=== PATIENT | female | born 1935 | race Caucasian/White ===

== ENCOUNTER → 2018-05-07 13:07 | Outpatient (CLI) | payer MEDICARE, OTHER ==
[~2018-05-07 13:07] MED LIST: BAYER CHEWABLE81 MG PO; KEFLEX500 MG PO; METOPROLOL TART50 MG PO; OMEPRAZOLE DR 20 MG PO
[2018-05-27 07:04] VITALS: BMI 24.8
== END | disposition home or self-care (01) ==
LOC: D.RAD 13:07
DX: N39.0 Urinary tract infection, site not specified (principal); N20.0 Calculus of kidney

== ENCOUNTER 2018-05-27 05:45 | Day surgery (SDC) | payer MEDICARE, OTHER ==
[2018-05-26 11:47] LABS: BASOPHILS 0.2 % (0-2); EOSINOPHILS 4.2 % (0-7); HEMATOCRIT 44.2 % (36.0-48.0); HEMOGLOBIN 15.1 g/dL (12-16); IMMATURE GRANULOCYTES 0.1 % (0-5); LYMPHOCYTES 35.9 % (15-50); MCH 30.9 pg (26.0-34.0); MCHC 34.2 g/dL (31.0-37.0); MCV 90.4 fL (80.0-100.0); MEAN PLATELET VOLUME 9.4 fL (7.4-10.4); MONOCYTES 8.9 % (2-11); NEUTROPHILS 50.7 % (40-80); PLATELET COUNT 208 10x3/uL (130-400); RBC 4.89 10x6/uL (4.00-5.40); RDW 13.5 % (11.5-14.5); WBC 8.2 10x3/uL (4.8-10.8)
[2018-05-26 11:59] LABS: ANION GAP 11.5 mmol/L (8-16); CALCIUM 8.9 mg/dL (8.5-10.1); CARBON DIOXIDE 28.1 mmol/L (21.0-32.0); CREATININE - SERUM 0.9 mg/dL (0.6-1.3); POTASSIUM - SERUM 4.6 mmol/L (3.5-5.1)
[~2018-05-27] VITALS: Ht 165.1 cm; Wt 67.6 kg
--- NOTE | ~2018-05-27 | OP ---
PATIENT NAME: LURDES BECKER MEDICAL RECORD: [id number] :37 LOCATION:D.OPS ADMISSION DATE: SURGEON: MISBAH FREEDMAN MD DATE OF OPERATION: 05/27/2018 SURGEON: Misbah Freedman MD ANESTHESIA: TIVA by Dr. Misbah Pineda. PROCEDURES: Cystoscopy, examination under anesthesia. 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 FINDINGS: On cystoscopy, no graft erosion. Single ureteral orifices bilaterally. The bladder was diffusely inflamed. The bladder was heavily trabeculated with diverticula. This is from bladder outlet obstruction. On EUA, the patient had previous hysterectomy. There is a [place]-Walker grade II to III cystocele. The bladder could not empty completely until the cystocele was manually reduced. The pubovaginal sling is palpated and it seems very loose. No mesh erosion was seen. BLOOD LOSS: None. CLINICAL HISTORY: This is an 82-year-old female, A0, who was originally from [facility]. Her town was completely destroyed during World War II. 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 She has had hysterectomy in 1959 performed by the army doctors. She developed stress urinary incontinence in the . She also noticed a cystocele bulging of the vagina. She had an anterior repair in 1999, which failed. She continues to have stress urinary incontinence as well as urge incontinence. She is using 6 pads a day and 2 at night to catch incontinence. In 2014, she had a pubovaginal sling with Dr. Lyons. She remains incontinent. She also has issues with recurrent urinary tract infections. Therefore, I am performing an examination under anesthesia to determine if she has any vaginal mesh erosion. Also, I would like to get a better idea of what type of cystocele and other lesions she may have. It should be noted that when I examined her in the office, she did not have a rectocele. THE PATIENT IS ALLERGIC TO NITROFURANTOIN. She was given Ancef transportation agent to the OR. We had cardiac clearance from Dr. Rowan. DESCRIPTION OF PROCEDURE: She was given IV sedation and then placed into dorsal lithotomy position. She was then prepped and draped. A 21-Telugu cystoscope with 30-degree lens was used for visualization. The urethra is angulated and faces anteriorly due to the cystocele, which fills up the vaginal introitus. Putting the scope in I noticed that there was no injury to the urethra and no signs of mesh erosion into the urethra. Going into the bladder, she has diffuse bladder inflammation, which could be from previous cystitis. The bladder was heavily trabeculated. There are some cellules and diverticula, which indicate a bladder outlet obstruction. Single ureteral orifices are seen. No bladder tumors were seen. When I tried to empty the bladder urine through the cystoscope, the outflow was very small and slow. I OPERATIVE REPORT [id number] LURDES BECKER had to manually reduce the cystocele in order to completely empty the bladder. I then placed the scope into the vagina for vaginoscopy. She had previous hysterectomy. The anterior vaginal wall was completely intact and there are no signs of mesh graft erosion at all. Manual palpation revealed that the graft is a mesh and it is palpable under the urethra. It seems very slack and loose. At this point, I suspect that her recurrent UTIs are from incomplete bladder emptying due to bladder outlet obstruction from the presence of the graft as well as a quite significant cystocele. I will have to see her back in followup to discuss removal of the old pubovaginal sling and placement of a new pubovaginal sling as well as a cystocele repair in order to try to correct these issues. TRANSINT:[id number] Voice Confirmation ID: [id number] DOCUMENT ID: [id number] MISBAH FREEDMAN MD at 1051 CC: [id number] DICTATION DATE: 05/27/18 1018 TREE TRIMMER HELPER: 05/27/18 1042 [facility] [address] [id number]
[2018-05-27 07:04] VITALS: BP 119/62; Ht 165.1 cm; Wt 67.6 kg
== END 2018-05-27 11:15 | disposition home or self-care (01) ==
LOC: D.OPS 05:45
PROVIDERS: Anesthesiology
DX: N32.0 Bladder-neck obstruction (principal); Z87.440 Personal history of urinary (tract) infections; N81.11 Cystocele, midline; N39.3 Stress incontinence (female) (male); N32.89 Other specified disorders of bladder; N32.3 Diverticulum of bladder; R33.8 Other retention of urine; Z01.812 Encounter for preprocedural laboratory examination

== ENCOUNTER → 2018-06-23 18:21 | Outpatient (CLI) | payer MEDICARE, OTHER ==
[2018-05-27 07:04] VITALS: BMI 24.8
== END | disposition home or self-care (01) ==
LOC: D.LABREF 18:21
DX: R79.89 Other specified abnormal findings of blood chemistry (principal); D72.829 Elevated white blood cell count, unspecified; R31.9 Hematuria, unspecified

== ENCOUNTER → 2019-08-01 09:19 | Outpatient (CLI) | payer MEDICARE, OTHER ==
[2018-05-27 07:04] VITALS: BMI 24.8
--- NOTE | 2019-08-08 09:58 | EC ---
PATIENT:LURDES BECKER DATE OF SERVICE: 08/01/19 SEX: F MEDICAL RECORD: [id number] DATE OF : 37 LOCATION:D.[facility] AGE OF PATIENT: 83 ADMISSION DATE: 08/01/19 REFERRING PHYSICIAN: INTERPRETING PHYSICIAN: DAVID FELIPE MD ECHOCARDIOGRAM REPORT ECHO CHARGES 4 ECHO COMPLETE Date: 08/01/19 CLINICAL DIAGNOSIS: PVC'S/PAC'S/MURMUR/MVP H/O HTN ECHOCARDIOGRAPHIC MEASUREMENTS (adult normal given) AC root (d.<3.7cm) 3.0 cm LV Septum d (<1.2 cm> 1.3 cm Valve Excursion 2.3 cm LV Septum (systole) 1.9 cm Left Atria (s.<4.0cm> 3.9 cm LVPW d(<1.2cm) 1.3 cm RV (d.<2.3cm) 2.9 cm LVPW (sytole) 1.8 cm LV diastole(<5.6CM) 6.1 cm MV E-F(>70mm/sec) cm LV systole 4.2 cm LVOT Diameter 2.0 cm MV exc.(>10mm) cm Est.ejection fraction (50-75%) % DOPPLER: LVIT cm/sec A 80.0 cm/sec E 49.0 cm/sec LA cm/sec RVSP 27.2 mmHg LVOT 114 cm/sec AOP1/2T 1048.m/s Asc. Ao 143 cm/sec RVOT 61.0 cm/sec RA cm/sec PA 80.0 cm/sec AV Gradient Peak 8.2 mmHg AV Mean 4.3 mmHg AV Area 2.4 cm MV Gradient Peak 5.0 mmHg MV Mean 1.5 mmHg MV Area cm COMMENTS: OP - [facility] Coroner: [place] Scientific Writer: 3 Dr. Rowan TAPE# PACS Pericardial Effusion N DATE OF SERVICE: 08/01/2019 Adequate 2D, color flow imaging, spectral Doppler, and M-Mode. LVH is present. LV internal dimensions are normal. Wall motion is normal. EF is greater than or equal to 55%. Aortic valve is tricuspid and no evidence of stenosis on Doppler interrogation. Left atrium is normal. Mitral valve shows mild prolapse of the posterior leaflet with only trivial MR. Right-sided chambers are grossly normal. Trivial TR. ECHOCARDIOGRAM REPORT [id number] ROSITALURDESRHIANNA LECHUGA TRANSINT:[id number] Voice Confirmation ID: [id number] DOCUMENT ID: [id number] DAVID FELIPE MD at 0958 CC: [id number] DICTATION DATE: 08/02/19 1434 VP OUTCOMES: 08/02/19 1719 DEP CLI 08/01/19 [id number] [place] [address]
== END | disposition home or self-care (01) ==
LOC: D.HCCECHO 09:19
PROVIDERS: ATTEND Internal Medicine Interventional Cardiology
DX: R01.1 Cardiac murmur, unspecified (principal)

== ENCOUNTER → 2019-09-19 23:44 | Outpatient (CLI) | payer MEDICARE, OTHER ==
[2018-05-27 07:04] VITALS: BMI 24.8
== END | disposition home or self-care (01) ==
LOC: D.LABREF 23:44
PROVIDERS: ATTEND Urology
DX: N39.0 Urinary tract infection, site not specified (principal)

== ENCOUNTER → 2019-10-05 22:49 | Outpatient (CLI) | payer MEDICARE, OTHER ==
[2018-05-27 07:04] VITALS: BMI 24.8
== END | disposition home or self-care (01) ==
LOC: D.LABREF 22:49
PROVIDERS: ATTEND Urology
DX: R31.9 Hematuria, unspecified (principal)

== ENCOUNTER → 2020-01-09 22:24 | Outpatient (CLI) | payer MEDICARE, OTHER ==
[2018-05-27 07:04] VITALS: BMI 24.8
== END | disposition home or self-care (01) ==
LOC: D.LABREF 22:24
PROVIDERS: ATTEND Urology
DX: R31.9 Hematuria, unspecified (principal); R82.90 Unspecified abnormal findings in urine

== ENCOUNTER 2020-02-16 05:42 | Day surgery (SDC) | payer MEDICARE, OTHER ==
[~2020-02-16] VITALS: Ht 165.1 cm; Wt 72.1 kg
[~2020-02-16 05:42] MED LIST changes: +METAMUCIL PACKE1 PKT PO
[2020-02-16 06:15] LABS: HEMATOCRIT 47.5 % (36.0-48.0); HEMOGLOBIN 15.6 g/dL (12-16); MCH 30.1 pg (26.0-34.0); MCHC 32.8 g/dL (31.0-37.0); MCV 91.7 fL (80.0-100.0); MEAN PLATELET VOLUME 9.4 fL (7.4-10.4); PLATELET COUNT 245 10x3/uL (130-400); RBC 5.18 10x6/uL (4.00-5.40); RDW 13.1 % (11.5-14.5); WBC 6.3 10x3/uL (4.8-10.8)
[2020-02-16 06:19] LABS: CALCIUM 8.6 mg/dL (8.5-10.1); CARBON DIOXIDE 31.3 mmol/L (21.0-32.0); CREATININE - SERUM 1.1 mg/dL (0.6-1.3); POTASSIUM - SERUM 4.3 mmol/L (3.5-5.1)
[2020-02-16 07:03] VITALS: BP 137/74; Ht 165.1 cm; Wt 72.1 kg
[2020-02-16 10:11] LABS: LYMPHOCYTES 37 % (15-50); MONOCYTES 14 % (2-11); NEUTROPHILS 48 % (40-80); PLATELET ESTIMATE NORMAL; ROULEAUX OCC
--- NOTE | 2020-02-16 12:49 | NUR ---
1155-AMBULATED TO RESTROOM TO VOID WITHOUT COMPLICATIONS. REMOVED IV WITH CATH INTACT,DISPOSED INTO SHARPS,COVERED WITH GUAZE,SECURED WITH MEDIPORE TAPE.
--- NOTE | 2020-02-16 12:51 | NUR ---
1208-PT DRESSED. REVIEWED POST OP INSTRUCTIONS AND TO MAKE A 3 MONTH FOLLOW UP.VERBALIZED UNDERSTANDING. ESCORTED OUT VIA W/C BY STAFF WITH SPOUSE AWAITING TO DRIVE HOME.
--- NOTE | 2020-02-16 13:00 | OP ---
PATIENT NAME: LURDES BECKER MEDICAL RECORD: [id number] :37 LOCATION:D.OPS ADMISSION DATE: SURGEON: KATHLEEN FREEDMAN MD DATE OF OPERATION: 02/16/2020 SURGEON: Kathleen Freedman MD ANESTHESIA: General anesthesia by Marlon Stevens CRNA DIAGNOSES: Female stress urinary incontinence, [place]-Walker grade II midline cystocele. PROCEDURES: 1. Cystoscopy, pubovaginal sling with mesh -- [employer] Obtryx II. 2. Rectocele repair with Coloplast [place] dermis 8 x 12 cm graft. FINDINGS: On cystoscopy, single ureteral orifices bilaterally with no bladder tumors. No bladder injury. The previous pubovaginal sling was made of fascia as no mesh graft was discovered on exploration. ESTIMATED BLOOD LOSS: 200 mL. SPECIMENS: None. CLINICAL HISTORY: This is an 84-year-old female, who is post-hysterectomy. She had a pubovaginal sling done by Dr. Lyons many years ago. She has remained incontinent of urine. She also has recurrent urinary tract infections from a grade II midline cystocele, which is preventing complete bladder emptying. She comes now to have the cystocele repaired. I was not sure of a mesh sling had been used previously. In that case, the mesh sling would have to be removed and we would put a new sling. She is aware of the risks of the use of mesh including infection, graft erosion into the urethra, the graft extrusion into the vagina, pain and dyspareunia. She was given Ancef 1 gram IV remotely piloted vehicle controller to the OR. DESCRIPTION OF PROCEDURE: The patient was given induction of general anesthesia in supine position. She was then placed into the lithotomy position and prepped and draped. A weighted speculum was used to hold the posterior vaginal wall down. She was placed in Trendelenburg also. A 16-Yoruba Gonzalez catheter was placed into the bladder and put to bag drainage. A #1 nylon sutures were used as stay sutures to hold the labia majora laterally. These were anchored to the medial thighs. The anterior vaginal wall was infiltrated with vasopressin solution. Twenty units of vasopressin was dissolved in 100 mL of injectable normal saline. This was used for hydrodissection of the anterior vaginal wall. A T-shaped incision was made in the anterior vaginal wall. The crossbar of the T was placed about 5 mm away from the urethral meatus. This was to avoid the previous scar tissue. The vertical bar of the T ran along the anterior vaginal wall midline for a distance of about 1.5 cm. Dissection was performed using Metzenbaum scissors. We entered into the plane between the anterior vaginal wall and the bladder and urethra. Laterally, we broke down the pubocervical fascia and the attachment to the pelvic fascia. The obturator membrane was cleared off. Posteriorly, we cleared off the presacral space with the ischial spine and the attached sacrospinous ligament. Anteriorly, we entered into the space of Retzius. The Capio sutures were then placed for the cystocele repair. Four sutures of 2-0 Prolene were placed using a Capio suture jinrikisha driver. The OPERATIVE REPORT [id number] LURDES BECKER anterior repair replaced at the Santo's ligament. The posterior repair were placed through the sacrospinous ligament, 1 cm medial to the ischial spine. The purpose of removing medial to the ischial spine is to avoid hitting the internal pudendal nerves and arteries. We then landmarked for the pubovaginal sling. This was inferior to the body of the adductor longus muscle where it inserted on to the descending pubic ramus. A kathleen was made on each side of the descending pubic ramus with a marking pen. A stab incision was made using a #15 blade. The helical trocars of the [employer] Obtryx system were then placed through the stab incision and the needle-point went deep to the descending pubic ramus and the needle-point exited into the vaginal dissection space via the anterior apex of the obturator membrane. She had an intercepting finger on the anterior part of the obturator membrane. The finger was then used to guide the point out of the vaginal dissection. This finger was also to protect the bladder and urethra for any injury by the needle. The graft was then attached to the tip of the helical trocar. The trocar was then withdrawn, resulting in transobturator passage of the [employer] Obtryx mesh. The graft has midpoint indicator, which consists of a tab. This was placed under the mid urethra. Once it was placed under the mid urethra with no tension. The midpoint indicator was removed by cutting the stitch holding it in place. At this point, we performed cystoscopy to check for bladder injury. The Gonzalez catheter was removed. A 17-Yoruba cystoscope with 30-degree lens was used for visualization. No bladder injury was seen. The bladder was filled with 500 mL of normal saline to help adjust our graft tension. With the cystoscope removed, pressure suprapubically could cause leakage of fluid per the urethra. The graft tension was then gradually increased until no further leakage was evidenced after applying suprapubic pressure. The clear plastic sheath material on the graft ends was maintained until we had to place our cystocele repair graft. The cystocele repair graft is Coloplast [place] dermis 8 x 12. The depths from the vaginal dissection to the bladder neck was measured at 6 cm. An arch was cut out of the 12 cm long wall of one of the sides of the graft so that the apex of the arch was 6 cm from its opposite side. The graft was soaked in normal saline. The suspensory sutures placed by the [employer] jinrikisha driver were placed through the respective corners of the graft. The graft was then tied down in place. At this point, we removed the clear plastic sheath material from the pubovaginal sling. A hemostat was placed under the urethra to maintain graft tension. This hemostat was between the graft sling and the urethra. The clear plastic sheath material were removed entirely on both sides. The graft material was cut where it exited the skin in the groin region. The skin of the groin region was closed using simple interrupted 4-0 Vicryl. A 4-0 Monocryl in running fashion was used to close the vaginal incision. Vaginal packing consisting of Kerlix with estrogen cream was placed into the vagina. This will be removed prior to the patient going home. The patient does not have a Gonzalez catheter. We used a red rubber catheter at the end of the procedure to drain her bladder. If she is able to void, then she can go home without a Gonzalez catheter. If she cannot void, then we will have to send her home with an indwelling Gonzalez catheter for a few days. TRANSINT:[id number] Voice Confirmation ID: [id number] DOCUMENT ID: [id number] OPERATIVE REPORT [id number] LURDES BECKER ROBERT S MD at 1300 CC: [id number] DICTATION DATE: 02/16/20 1044 DIRECTOR OF TEACHING AND LEARNING: 02/16/20 1236 [facility] SDC 02/16/[address] [facility] [address] [facility] [place] [address]
--- NOTE | 2020-02-16 15:28 | NUR ---
1430-CONTINUE TO NOT BE ABLE TO VOID.
--- NOTE | 2020-02-16 15:28 | NUR ---
1230-PT UNABLE TO VOID. WATER AT BEDSIDE AND ENCOURAGED. IV PATENT
--- NOTE | 2020-02-16 15:29 | NUR ---
1515-BLADDER SCAN 227. IV BAG GOING IN BY GRAVITY. DRINKING ICE WATER.
== END 2020-02-16 16:47 | disposition home or self-care (01) ==
LOC: D.OPS 05:42
PROVIDERS: Anesthesiology; ATTEND Urology
DX: N39.3 Stress incontinence (female) (male) (principal); N81.10 Cystocele, unspecified; N39.0 Urinary tract infection, site not specified; N81.11 Cystocele, midline

== ENCOUNTER 2020-05-07 10:15 | Outpatient (CLI) | payer MEDICARE, OTHER ==
[2020-02-16 07:03] VITALS: BMI 26.5
== END 2020-05-07 11:30 | disposition home or self-care (01) ==
LOC: D.MAMMO 10:15
PROVIDERS: ATTEND Family Medicine
DX: Z12.31 Encounter for screening mammogram for malignant neoplasm of breast (principal)

== ENCOUNTER → 2020-11-22 09:31 | Outpatient (CLI) | payer MEDICARE, OTHER ==
[2020-02-16 07:03] VITALS: BMI 26.5
--- NOTE | 2020-11-26 16:00 | EC ---
PATIENT:LURDES BECKER DATE OF SERVICE: 11/22/20 SEX: F MEDICAL RECORD: [id number] DATE OF : 37 [facility] AGE OF PATIENT: 85 ADMISSION DATE: 11/22/20 REFERRING PHYSICIAN: INTERPRETING PHYSICIAN: DAVID FELIPE MD ECHOCARDIOGRAM REPORT ECHO CHARGES 4 ECHO COMPLETE Date: 11/22/20 CLINICAL DIAGNOSIS: MITRAL REGURG/MITRAL VALVE PROLAPSE ECHOCARDIOGRAPHIC MEASUREMENTS (adult normal given) AC root (d.<3.7cm) 3.4 cm LV Septum d (<1.2 cm> 1.3 cm Valve Excursion 2.1 cm LV Septum (systole) 1.5 cm Left Atria (s.<4.0cm> 3.2 cm LVPW d(<1.2cm) 1.3 cm RV (d.<2.3cm) 3.7 cm LVPW (sytole) 1.7 cm LV diastole(<5.6CM) 5.8 cm MV E-F(>70mm/sec) cm LV systole 3.8 cm LVOT Diameter 1.9 cm MV exc.(>10mm) 1.8 cm Est.ejection fraction (50-75%) % DOPPLER: LVIT cm/sec A 102.0cm/sec E 68.0 cm/sec LA cm/sec RVSP 36 mmHg LVOT 96 cm/sec AOP1/2T 701 m/s Asc. Ao 131 cm/sec RVOT 53 cm/sec RA cm/sec PA 95 cm/sec AV Gradient Peak 6.84 mmHg AV Mean 3.33 mmHg AV Area 2.2 cm MV Gradient Peak 4.88 mmHg MV Mean 1.49 mmHg MV Area cm COMMENTS: Installation & Maintenance Executive: 2 WAYNE HORTA Vp Genetic: 3 Dr. Rowan TAPE# PACS Pericardial Effusion N DATE OF SERVICE: Adequate 2D, color-flow imaging, spectral Doppler, and M-Mode FINDINGS: Mild LVH. LV internal dimensions are normal. Wall motion is normal. EF is greater than or equal to 55%. Aortic valve is tricuspid. Good valve excursion. Mild AI. Left atrium is normal at 3.2 cm. Mitral valve shows slight prolapse of the anterior leaflet, but only mild MR. Right-sided chamber is grossly normal. Trace TR. ECHOCARDIOGRAM REPORT [id number] LURDES BECKER TRANSINT:[id number] Voice Confirmation ID: [id number] DOCUMENT ID: [id number] DAVID FELIPE MD at 1600 CC: [id number] DICTATION DATE: 11/23/20818 QUILL COLLECTOR: 11/23/20 0910 DEP CLI 11/22/20 [id number] [place] [address]
== END | disposition home or self-care (01) ==
LOC: D.HCCECHO 09:30
PROVIDERS: ATTEND Internal Medicine Interventional Cardiology
DX: I34.0 Nonrheumatic mitral (valve) insufficiency (principal)

== ENCOUNTER → 2020-12-17 10:10 | Outpatient (CLI) | payer MEDICARE, OTHER ==
[2020-02-16 07:03] VITALS: BMI 26.5
== END | disposition home or self-care (01) ==
LOC: D.HCCARDIO 10:10
PROVIDERS: ATTEND Internal Medicine Cardiovascular Disease
DX: I20.9 Angina pectoris, unspecified (principal)

== ENCOUNTER 2020-12-20 11:52 | Day surgery (SDC) | payer MEDICARE, OTHER ==
[~2020-12-20] VITALS: Ht 165.1 cm; Wt 71.2 kg
--- NOTE | ~2020-12-20 | HEMODYNAMI ---
PATIENT:LURDES BECKER MEDICAL RECORD: [id number] : 39 LOCATION:[facility] ADMISSION DATE: 12/20/20 Generatedon:114:56 Patient name: LURDES BECKER Patient #: [id number] SSN: [id number] : 1935 Date of study: 12/20/2020 Page: Of Hemodynamic Procedure Report Patient Data Patient Demographics Procedure consent was obtained First Name: LURDES Gender: Female Last Name: ROSITA : 1935 Middle Initial: ALEXANDREA Age: 85 year(s) Patient #: [id number] Race: SSN: [id number] Additional ID: [id number] Contact details Address: [address] [place] [address] State: [place] City: [place] Zip code: [address] Past Medical History Performed procedures and imaging results Date Procedure Procedure Results Comments Stress testing Positive->Intermediate with SPECT MPI risk Allergies Allergen Reaction Date Comments Reported Other allergy 12/20/2020 SULFA Admission Admission Data Admission Date: 12/20/2020 Admission Time: 11:52 Arrival Date: 12/20/2020 Arrival Time: 13:30 Admit Source: Other Insurance Payor: Medicare [facility] #: [id number] Height (in.): 64.96 BSA: 1.78 (m2) Height (cm.): 165 BMI: 26.08 (kg/m2) Weight (lbs.): 156.53 Weight (kg.): 71 Lab Results Lab Result Date: 12/20/2020 Lab Result Time: 0:00 Biochemistry Name Units Result Min Max BUN mg/dl 18 --(---*)-- 7 18 Creatinine mg/dl 0.8 --(-*--)-- 0.6 1.3 eGFR ml/min 72 *-(----)-- 90 120 NONAFRICAN CBC Name Units Result Min Max Hemoglobin g/dl 14.9 --(-*--)-- 13.5 17.5 Procedure Procedure Types Cath Procedure Diagnostic Procedure [facility] w/Coronaries FFR/IVUS FFR Initial FFR Additional Sedation Charges Moderate Sedation 10-24 minutes PCI Procedure Coronary Stent Coronary Stent Initial Coronary Stent Additional Hemochron ACT Test Procedure Description Procedure Date Procedure Date: 12/20/2020 Procedure Start Time: 14:26 Procedure End Time: 14:53 Procedure Staff Name Function Eduardo Zhang MD Performing Physician Mary Beyer RT Monitor Channing Tolentino RN Nurse Daya Rudd RT Scrub Procedure Data Cath Procedure Fluoroscopy Diagnostic fluoroscopy Total fluoroscopy Time: 4.8 time: 4.8 min min Diagnostic fluoroscopy Total fluoroscopy dose: 485 dose: 485 mGy mGy Contrast Material Contrast Material Type Amount (ml) Isovue 300 108 Entry Location Entry Primary Successful Side Size Upsize Upsize Entry Closure Succes sful Closure Location (Fr) 1 (Fr) 2 (Fr) Remarks Device Remarks Femoral Right 5 Fr 6 Fr Exoseal artery Short Estimated blood loss: 10 ml Diagnostic catheters Device Type Used For End Catheter Placement MULTIPACK JL 4.0 5Fr Procedure catheter MULTIPACK 3DRC 5Fr Procedure catheter MULTIPACK Pigtail 5 Fr Ventriculography catheter Procedure Complications No complications Procedure Medications Medication Administration Route Dosage 0.9% NaCl I.V. 100 ml/hr Oxygen etCO2 Nasal cannula 2 l/min Heparin Flush Bag added to field 2 bags (1000units/500ml NS) Lidocaine 2% added to field 20 Zofran I.V. 4 mg Versed I.V. 1 mg Fentanyl I.V. 50 mcg Heparin Bolus I.V. 5000 units Integrilin (Bolus I.V. 6.2 ml 2mg/ml) Integrilin (Bolus wasted 3.8 ml 2mg/ml) Plavix P.O. 600 mg Hemodynamics Rest BSA: 1.78 (m2) HGB: 14.9 (g/dl) O2 Consumption: Estimated: 159.35 (ml/min) O2 Co nsumption indexed: Estimated:89.52 (ml/min/m) Heart Rate: 71 (bpm) Pressure Samples Time Site Value (mmHg) Purpose Heart Use Rate(bpm) 14:32 LV 137/10,11 Snapshot 80 Gradients Valve Time Site Site Mean SEP/DFP Peak To Heart Use 1 2 (mmHg) (sec/min) Peak Rate (mmHg) (bpm) Aortic 14:32 LV AO 81 Snapshots Pre Cath Intra NCS Post Cath Vital Signs Time Heart Resp SPO2 etCO2 NIBP (mmHg) Rhythm Pain Sedation Rate (ipm) (%) (mmHg) Status Level (bpm) 14:18:22 67 12 98 0 133/74(101) NSR 0 (11) 10(A) , No pain 14:22:36 63 13 100 30 121/64(83) NSR 0 (11) 10(A) , No pain 14:26:50 68 18 100 28.5 125/68(96) NSR 0 (11) 10(A) , No pain 14:31:06 79 21 98 33.7 126/60(95) NSR 0 (11) 10(A) , No pain 14:35:22 80 23 98 31.5 124/66(82) NSR 0 (11) 10(A) , No pain 14:39:40 82 27 99 32.2 120/57(88) NSR 0 (11) 10(A) , No pain 14:43:56 81 52 100 35.9 123/60(88) NSR 0 (11) 10(A) , No pain 14:48:10 87 19 100 31.5 123/72(88) NSR 0 (11) 10(A) , No pain 14:52:26 74 11 100 30 121/66(83) NSR 0 (11) 10(A) , No pain Medications Time Medication Route Dose Verified Delivered Reason Notes E ffectiveness by by 14:26:32 0.9% NaCl I.V. 100 Channing Channing Per ml/hr Rajan Tolentino physician RN RN 14:26:40 Oxygen etCO2 2 Channing Channing for low 02 Nasal l/min Rajan Tolentino sats cannula RN RN 14:26:50 Heparin Flush added 2 Channing Channing used for Bag to bags Rajan Tolentino procedure (1000units/500ml field RUIZ RN NS) 14:26:59 Lidocaine 2% added 20ml Channing Channing for local to vial Rajan Tolentino anesthetic field RUIZ RN 14:27:12 Zofran I.V. 4 mg Channing Channing for nausea Rajan Tolentino RN RN 14:27:20 Versed I.V. 1 mg Channing Channing for sedation Rajan Tolentino RN, RN 14:27:28 Fentanyl I.V. 50 Channing Channing for anxiety mcg Rajan Tolentino RN, RN 14:37:22 Heparin Bolus I.V. 5000 Channing Channing for sedation units Rajan Tolentino RN, RN 14:40:08 Integrilin I.V. 6.2 Channing Channing for (Bolus 2mg/ml) ml Rajan Tolentino antiplatelet RN RN therapy 14:40:17 Integrilin wasted 3.8 Channing Channing to sharp's (Bolus 2mg/ml) ml Rajan Tolentino RN, RN 14:51:39 Plavix P.O. 600 Channing Channing for mg Rajan Tolentino antiplatelet RN RN therapy Procedure Log Time Note 13:51:30 Informed consent obtained and on chart 13:52:21 Arrival Date: 12/20/2020 1:30:00 PM 13:52:44 Admit Source: Other 13:52:47 Insurance Payor : Medicare 13:54:57 Patient Height : 64.96 inches 13:55:01 Patient Weight : 156.53 lbs 13:55:40 Lab Result : eGFR NONAFRICAN 72 ml/min 13:55:40 Lab Result : Hemoglobin 14.9 g/dl 13:55:40 Lab Result : BUN 18 mg/dl 13:55:40 Lab Result : Creatinine 0.8 mg/dl 13:55:45 Diagnostic Cath Status : Elective 13:56:07 Procedure Status Elective Heart Cath (OP). 13:56:09 Patricia Machado RT(R) sent for patient. Start room use. 13:56:10 Time tracking: Regular hours (M-F 7:00 - 5:00) 13:56:14 Plan of Care:Hemodynamics will remain stable., Cardiac rhythm will remain stable., Comfort level will be maintained., Respiratory function will remain adequate., Patient/ family verbilizes understanding of procedure., Procedure tolerated without complication., Recovers from procedure without complications.. 14:02:44 H&P Date Dictated: 12/06/2020 Within 30 days and on chart., H&P Addendum completed by physician on day of procedure. (MUST COMPLETE FOR ALL OUTPATIENTS). 14:03:01 Patient allergic to Other allergySULFA 14:06:05 Stress Test: yes; abnormal INFERIOR 14:11:59 Patient received from Pre/Post Procedure Room to CCL 1 Alert and oriented. Tansferred to table in Supine position. 14:12:00 Warm blankets applied, and jaime hugger turned on for patient comfort. 14:12:00 Correct patient and procedure confirmed by team. 14:12:01 ECG and BP/O2 sat monitors applied to patient. 14:14:40 H&P Date Dictated: 12/17/2020 Within 30 days and on chart., H&P Addendum completed by physician on day of procedure. (MUST COMPLETE FOR ALL OUTPATIENTS). 14:14:43 Pre-procedure instructions explained to patient. 14:14:52 Family in waiting room. 14:14:54 Patient NPO since Midnight. 14:15:05 Is the patient allergic to Iodine/contrast media? No. 14:15:08 Was the patient premedicated? No 14:15:12 Is patient on blood thinner?No 14:15:15 Patient diabetic? No. 14:15:27 Snore? No 14:15:28 Sleep apnea? No 14:15:35 Patient pain scale 0/10 ?. 14:15:48 IV patent on arrival in left forearm with 0.9% NaCl at KVO. 14:15:56 Lab results completed and on chart. 14:16:36 Stress Test: yes; abnormal MULTIVESSEL 14:16:44 Right groin area was prepped with chlora-prep and draped in sterile fashion 14:16:50 Alarms reviewed by R. N. 14:16:51 Sharps counted by scrub and verified by R.N. 14:16:55 Physician arrived 14:17:15 Vital chart was started 14:17:20 Baseline sample Acquired. 14:17:29 Full Disclosure recording started 14:19:03 2) 60-89 Mildly reduced kidney function, and other findings (as for stage 1) point to kidney disease. 14:19:07 Maximum allowable contrast dose (3.7 X eGFR X 0.75)199 ml. 14:23:21 --------ALL STOP TIME OUT------ 14:23:22 Final Timeout: patient, procedure, and site verified with staff and physician. All members of the team are in agreement. 14:23:23 Right groin site verified by team. 14:23:28 Fire Safety Assessment: A--An alcohol-based skin anteseptic being used preoperatively., C--Open oxygen or nitrous oxide is being used., D--An ESU, laser, or fiber-optic light is being used. 14:23:39 Physical assessment completed. ASA score P 2 - A patient with mild systemic disease as per Eduardo Zhang MD. 14:23:44 Use device set Femoral Dx 14:23:48 ACIST Syringe (33753) opened to sterile field. 14:23:49 Bag Decanter (2002S) opened to sterile field. 14:23:50 Medline Cath Pack ([id number]) opened to sterile field. 14:23:51 ACIST Hand Control (34153) opened to sterile field. 14:23:52 ACIST Manifold (91349) opened to sterile field. 14:23:54 DIAGNOSTIC Multipack 5Fr catheter set (DX5620) opened to sterile field. 14:23:56 SHEATH 5FR [place] (AAZ384) opened to sterile field. 14:23:56 EMERALD Guide Wire (798-691) opened to sterile field. 14:26:26 Procedure started. 14:26:32 0.9% NaCl 100 ml/hr I.V. was administered by Channing Tolentino RN; Per physician; Verbal order read back and verified. 14:26:40 Oxygen 2 l/min etCO2 Nasal cannula was administered by Channing Tolentino RN; for low 02 sats; Verbal order read back and verified. 14:26:44 Local anesthetic to right femoral artery with Lidocaine 2% by Eduardo Zhang MD.INITIAL ACCESS ONLY 14:26:50 Heparin Flush Bag (1000units/500ml NS) 2 bags added to field was administered by Channing Tolentino RN; used for procedure; Verbal order read back and verified. 14:26:59 Lidocaine 2% 20ml vial added to field was administered by Channing Tolentino RN; for local anesthetic; Verbal order read back and verified. 14:26:59 A 5 Fr sheath was inserted into the Right Femoral artery 14:27:12 Zofran 4 mg I.V. was administered by Channing Tolentino RN; for nausea; Verbal order read back and verified. 14:27:20 Versed 1 mg I.V. was administered by Channing Tolentino RN; for sedation; Verbal order read back and verified. 14:27:28 Fentanyl 50 mcg I.V. was administered by Channing Tolentino RN; for anxiety; Verbal order read back and verified. 14:28:24 A MULTIPACK JL 4.0 5Fr catheter was advanced over the wire and used for Procedure. 14:28:26 LCA angiography performed. 14:30:56 Catheter removed. 14:31:06 A MULTIPACK 3DRC 5Fr catheter was advanced over the wire and used for Procedure. 14:31:11 RCA angiography performed. 14:31:23 Catheter removed. 14:32:27 A MULTIPACK Pigtail 5 Fr catheter was advanced over the wire and used for Ventriculography. 14:32:53 LV gram done using WALKER 14:33:01 EF : 55 % 14:33:02 Catheter removed. 14:33:05 Zero performed for pressure channel P1 14:33:48 SHEATH 6FR [place] (IAN456) opened to sterile field. 14:34:07 Sheath upsized to a 6 Fr Short. 14:34:58 GUIDE 6FR XBLAD 3.5 catheter ([id number]) opened to sterile field. 14:35:13 6 Fr xblad3.5 guide catheter was inserted over the wire 14:35:35 [place] OmniWire (52368) opened to sterile field. 14:35:37 INFLATOR Merit BasixCompak (JX8289) opened to sterile field. 14:36:16 OMNI wire advanced. 14:37:22 Heparin Bolus 5000 units I.V. was administered by Channing Tolentino RN; for sedation; Verbal order read back and verified. 14:37:41 Pressure wire advanced. 14:39:23 Diag1 lesion measured at ? with IFR 14:40:08 Integrilin (Bolus 2mg/ml) 6.2 ml I.V. was administered by Channing Tolentino RN; for antiplatelet therapy; Verbal order read back and verified. 14:40:17 Integrilin (Bolus 2mg/ml) 3.8 ml wasted was administered by Channing Tolentino RN; to sharp's; Verbal order read back and verified. 14:40:41 Place stent Inflation Number: 1 A JETHRO RX 2.5 x 22 stent ([id number]) was prepped and advanced across the 1st Diag . The stent was deployed at 12 ELISHA for 0:11 (min:sec) . 14:42:00 Diag1 lesion measured at .95 with IFR 14:42:10 Wire redirected to lad. 14:45:22 Place stent Inflation Number: 1 A JETHRO RX 3.0 x 18 stent ([id number]) was prepped and advanced across the Mid LAD . The stent was deployed at 14 ELISHA for 0:10 (min:sec) . 14:47:03 pLAD lesion measured at .87 with IFR 14:47:20 Stent catheter was removed intact over wire. 14:47:23 Wire removed. 14:47:23 Guide catheter removed. 14:47:32 EXOSEAL 6Fr (EX600) opened to sterile field. 14:47:34 Tegaderm 4 x 4 (1626W) opened to sterile field. 14:48:42 Sheath removed intact; hemostasis achieved with Exoseal to the Right Femoral artery. 14:48:50 Procedure ended.(Physican Out) 14:49:01 Fluoroscopy time 04.80 minutes. 14:49:06 Flurop Dose total: 485 14:49:06 Fluoroscopy dose: 485 mGy 14:49:11 Dose Area Product 38174 mGy/cm. 14:49:19 Contrast amount:Isovue 300 108ml. 14:49:22 Maximum allowable dose exceeded? No. 14:49:23 Sharps counted by scrub and verified by R.N. 14:49:25 Insertion/operative site no bleeding no hematoma. 14:49:31 Post procedure rhythm: unchanged. 14:49:36 Estimated blood loss: 10 ml 14:49:39 Post procedure instruction explained to patient.Patient verbalizes understanding. 14:51:17 Procedure type changed to Cath procedure, Diagnostic procedure, LHC, LHC w/Coronaries, FFR/IVUS, FFR Initial, FFR Additional, Sedation Charges, Moderate Sedation 10-24 minutes, PCI procedure, Coronary Stent, Coronary Stent Initial, Coronary Stent Additional, Hemochron ACT Test 14:51:19 Procedure and supply charges have been captured, reviewed, submitted and are correct. 14:51:39 Plavix 600 mg P.O. was administered by Channing Tolentino RN; for antiplatelet therapy; Verbal order read back and verified. 14:51:58 ACT drawn and resulted at 214 seconds. (normal therapeutic range 180-240 seconds). 14:53:04 Procedure Complication : No complications 14:53:06 Vital chart was stopped 14:53:12 [facility] Findings: MVD- PCI performed (see procedure note) 14:53:14 Operative report dictated upon procedure completion. 14:53:15 See physician's report for complete and final results. 14:53:17 Report given to Pre/Post Procedure Room. 14:53:20 Patient transfered to Pre/Post Procedure Room with Stretcher. 14:53:22 Procedure ended. 14:53:22 Full Disclosure recording stopped 14:53:25 End room use (Document Last) Intervention Summary Intervention Notes Time ActionType Lesion and Equipment Used Action# Pressure Duration Attributes 14:40:41 Place stent 1st Diag JETHRO RX 2.5 x 1 12 00:11 22 stent ([id number]) 14:45:22 Place stent Mid LAD JETHRO RX 3.0 x 1 14 00:10 18 stent ([id number]) Device Usage Item Name Manufacture Quantity Catalog Hospital Part [facility] Lot# / Number Charge Number Stock Stock Serial# Code ACIST Syringe Acist 1 57600 154684 186345 992959 20 (88663) Medical Systems Inc Bag Decanter Microtek 1 2002S 078783 51708 589385 5 (2002S) Medical Inc. Medline Cath Medline 1 [id number] 207050 36179 197391 5 Pack ([id number]) ACIST Hand Acist 1 52681 106620 375040 743645 5 Control Medical (46666) Systems Inc ACIST Manifold Acist 1 37542 974089 484074 108211 5 (27223) Medical Systems Inc DIAGNOSTIC Cardinal 1 ZS2151 347461 89792 050137 30 Multipack 5Fr Health catheter set (LB2774) SHEATH 5FR Terumo 1 ISF326 655541 858759 148259 5 [place] (EMZ447) EMERALD Guide Cardinal 1 502-455 875286 112483 139261 5 Wire (502-455) Health MULTIPACK JL Cardinal 1 583493 5 4.0 5Fr Health catheter MULTIPACK 3DRC Cardinal 1 498527 5 5Fr catheter Health MULTIPACK Cardinal 1 581217 5 Pigtail 5 Fr Health catheter SHEATH 6FR Terumo 1 LAC630 088766 672010 884845 40 [place] (QBO110) GUIDE 6FR Cardinal 1 16677908 522506 715630 570554 10 XBLAD 3.5 Health catheter ([id number]) [place] 1 0352157 958650 34715 9974 5 OmniWire (90785) INFLATOR Merit Merit 1 NS0686 861497 080643 573445 15 [facility] (OF9619) JETHRO RX 2.5 x Medtronic 1 [id number] 888718 1033083 555910 5 [id number] 22 stent ([id number]) JETHRO RX 3.0 x Medtronic 1 [id number] 350969 4084582 782435 5 [id number] 18 stent ([id number]) EXOSEAL 6Fr Cardinal 1 EX600 286520 821372 350468 10 (EX600) Health Tegaderm 4 x 4 3M 1 1626W 124782 995471 747159 5 (1626W) Signature Audit [place] Stage Time Signature Unsigned Intra-Procedure 12/20/2020 Mary Beyer 2:54:18 PM RT(R) Intra-Procedure 12/20/2020 Channing 2:54:57 PM Rajan RUIZ Intra-Procedure 12/20/2020 Eduardo Arias 2:56:46 PM [address] [place] [address]
[2020-12-20] MEDS ORDERED: CEPHALEXIN250 M1 PO (12:05)
[2020-12-20 12:27] VITALS: BP 160/61; Ht 165.1 cm; Wt 71.2 kg
[2020-12-20 12:28] LABS: BASOPHILS 0.3 % (0-2); EOSINOPHILS 2.4 % (0-7); HEMATOCRIT 46.7 % (36.0-48.0); HEMOGLOBIN 14.9 g/dL (12-16); IMMATURE GRANULOCYTES 0.2 % (0-5); LYMPHOCYTE ABS# 3.77 10x3/uL (1.18-3.74); LYMPHOCYTES 43.8 % (15-50); MCHC 31.9 g/dL (31.0-37.0); MEAN PLATELET VOLUME 9.4 fL (7.4-10.4); MONOCYTES 7.1 % (2-11); NEUTROPHIL ABS# 3.96 10x3/uL (1.56-6.13); NEUTROPHILS 46.2 % (40-80); PLATELET COUNT 265 10x3/uL (130-400); RBC 5.13 10x6/uL (4.00-5.40); WBC 8.6 10x3/uL (4.8-10.8)
[2020-12-20 12:40] LABS: ANION GAP 8.1 mmol/L (8-16); CALCIUM 8.9 mg/dL (8.5-10.1); CHOL - HDL RATIO 2.2 ratio (2.3-4.1); CREATININE - SERUM 0.8 mg/dL (0.6-1.3); POTASSIUM - SERUM 4.1 mmol/L (3.5-5.1)
--- NOTE | 2020-12-20 15:14 | NUR ---
PT ARRIVES TO ROOM 5 VIA STRETCHER S/P HEART CATH. SEE PRICING CONSULTANT. IV INFUSING PER ORDERS, DENIES PAIN OR NEEDS AT PRESENT. RIGHT GROIN SOFT NO OOZING OR BLEEDING , NO PALPABLE HEMATOMA , PEDAL PULSE PALPABLE, CALL LIGHT WITHIN REACH
--- NOTE | 2020-12-20 15:30 | NUR ---
REMAINS SUPINE POSITION, VSS, SR, RIGHT GROIN SOFT WITHOUT OOZING OR BLEEDING NOTED, NO PALPABLE HEMATOMA, PEDAL PULSE PALPABLE, DENIES PAIN OR NEEDS, SIPS OF CAN SODA GIVEN, CALL LIGHT WITHIN REACH
[2020-12-20] MEDS ORDERED: PLAVIX75 MG PO (15:39)
--- NOTE | 2020-12-20 15:45 | NUR ---
EYES CLOSED AROUSES EASILY, VSS, SR, RIGHT GROIN SOFT WITHOUT OOZING OR BLEEDING, NO PALPABLE HEMATOMA, EXTREMITY WARM AND PEDAL PULSE PALPABLE, CAP REFILL WNL ,IV INFUSING PER ORDER, DENIES PAIN OR NEEDS, UPDATED ON TIME FRAME TO LAY FLAT AND PT VERBALIZED UNDERSTANDING, CALL LIGHT WITHIN REACH
--- NOTE | 2020-12-20 16:15 | NUR ---
RIGHT GROIN SOFT NO BLEEDING OR OOZING OPSITE C/D/I, NO PALPABLE HEMATOMA, PEDAL PULSE PALPABLE, CAP REFILL WNL, SIP OF PO FLUIDS GIVEN, DENIES PAIN OR NEEDS, NO BATHROOM NEEDS AT PRESENT. VSS, SR ON MONITOR, CALL LIGHT WITHIN REACH
--- NOTE | 2020-12-20 16:45 | NUR ---
RESTING QUIETLY NO NEEDS OR PAIN, VSS, SR, RIGHT GROIN STABLE OPSITE C/D/I, SOFT WITHOUT PALPABLE HEMATOMA, PEDAL PULSE PALPABLE, MOVES ALL DIGITS, CAP REFILL WNL, CALL LIGHT WITHIN REACH
--- NOTE | 2020-12-20 17:15 | NUR ---
RESTING QUIETLY, AROUSES TO VERBAL, VSS, SR, RIGHT GROIN SOFT WITH NO OOZING OR BLEEDING OPSITE C/D/I, NO PALPABLE HEMATOMA, EXTREMITY WARM AND PEDAL PULSE PALPABLE, PT DENIES PAIN OR NEEDS, IV INFUSING PER ORDERS, CALL LIGHT WITH IN REACH, DENIES BATHROOM NEEDS
--- NOTE | 2020-12-20 17:55 | NUR ---
PT PLACED ON BEDPAN VOIDS 100CC CLEAR YELLOW URINE
--- NOTE | 2020-12-20 18:01 | NUR ---
PT PLACED IN SEMI FOWLERS POSITION, [facility] BOX AND PO FLUIDS GIVEN, RIGHT GROIN SOFT NO BLEEDING OR OOZING NOTED, NO PALPABLE HEMATOMA, PEDAL PULSE PALPABLE, DENIES PAIN OR NEEDS AT PRESENT , CALL LIGHT WITHIN REACH
--- NOTE | 2020-12-20 18:16 | NUR ---
DISCHARGE TEACHING STARTED, RIGHT GROIN STABLE NO OOZING OR BLEEDING NO PALPABLE HEMATOMA, PEDAL PULSE PALPABLE, PT DENIES PAIN OR NEEDS, IV KVO, CALL LIGHT WITHIN REACH
--- NOTE | 2020-12-20 18:45 | NUR ---
RIGHT GROIN SOFT WITHOUT SIGN OF BLEEDING OR OOZING , NO PALPABLE HEMATOMA, PEDAL PULSE PALPABLE, DENIES PAIN OR NEEDS AT PRESENT, 22G IV REMOVED FROM LEFT ARM CATHETER INTACT AND 2 X2 DRESSING PLACED, PT UP TO DRESS WITH ASSISTANCE FROM SPOUSE, DISCHARGE INSTRUCTIONS REVIEWED AND PT VERBALIZED UNDERSTANDING, PT AMBULATES TO BATHROOM AND VOIDS WITHOUT DIFFICULTY.
--- NOTE | 2020-12-20 19:00 | NUR ---
PT DISCHARGED ORDERED TAKEN TO [facility]ILY [facility]ARE VIA WHEELCHAIR, PT HAS NO QUESTIONS OR CONCERNS AT THIS TIME.
--- NOTE | 2020-12-24 16:09 | OP ---
PATIENT NAME: LURDES BECKER MEDICAL RECORD: [id number] :37 LOCATION:D.CAT ADMISSION DATE: SURGEON: DAVID FELIPE MD DATE OF OPERATION: 12/20/2020 PROCEDURE: Left heart catheterization, selective coronary angiography, plus stenting to the diagonal large D1 and LAD plus IFR wire postprocedure to the diagonal and LAD as well. FINDINGS: Left ventriculography in 30-degree WALKER view; normal wall motion and normal systolic function. CORONARY ANATOMY: LEFT MAIN: Left main is free of disease. LAD: LAD has a large D1, almost ramus territory. It has a diffuse 90% stenosis. The true LAD itself has a more discrete 80% stenosis. CIRCUMFLEX: Codominant system, free of disease. RIGHT CORONARY ARTERY: Codominant, free of disease. PLAN: Intervention to D1 and LAD in a staged fashion. First, we put the FFR wire down the D1, stent deployed was 2.5 x 22 [place] drug-eluting stent. Post-procedure IFR showed excellent flow at above 0.9. Stent deployed was a 3.0 x 18-mm [place] drug-eluting stent up to 14 atmospheres. Post-procedure shows a IFR at 0.8 at this point; however, angiographically looked excellent and decision was made to do no further intervention. Successful percutaneous transluminal coronary angioplasty stenting to the left anterior descending and diagonal, IFR wire to left anterior descending and diagonal. Sheath closed with ExoSeal device. Plavix was loaded in the lab. Heparin was used during the case as well as Integrilin. TRANSINT:[id number] Voice Confirmation ID: [id number] DOCUMENT ID: [id number] DAVID FELIPE MD at 1609 CC: [id number] DICTATION DATE: 12/20/20 1501 OCCUPATIONAL HEALTH NURSE SUPERVISOR: 12/20/20 1645 [facility] 12/20/20 [id number] [place] [address]
== END 2020-12-20 19:00 | disposition home or self-care (01) ==
LOC: D.CATH 11:52
PROVIDERS: ATTEND Internal Medicine Interventional Cardiology
DX: I10 Essential (primary) hypertension (principal); I34.1 Nonrheumatic mitral (valve) prolapse; R01.1 Cardiac murmur, unspecified; I20.9 Angina pectoris, unspecified; I49.9 Cardiac arrhythmia, unspecified
CPT/HCPCS: 93458; 93571; 93572; C9600; C9601